=== PATIENT | female | born 1990 | race Caucasian/White ===

== ENCOUNTER 2017-05-01 12:52 | Emergency (ER) | payer MEDICAID ==
[~2017-05-01] VITALS: Ht 152.4 cm; Wt 62.0 kg
[~2017-05-01 12:52] MED LIST: DOCU100C8 PO; DOXY1TAB3 PO; IBUP-1222 PO; OXYC-302 PO; PREN1TAB52 PO; [UNRECOGNIZED DRUG - OTHER] PO
[2017-05-01] MEDS ORDERED: SODIUM CHLORIDE 0.9% 1,000ML IVBOLUS ONE (14:00)
[2017-05-01] MEDS ORDERED: SODIUM CHLORIDE FLUSH 10ML SYR IVF ONE (14:00)
[2017-05-01 14:14] LABS: BLOOD UREA NITROGEN 12 mg/dL (7-18)
[2017-05-01 14:33] LABS: ASPARTATE AMINO TRANSFERASE 20 U/L (15-37)
[2017-05-01 14:55] VITALS: BP 131/66
== END 2017-05-01 15:47 | disposition home or self-care (01) ==
LOC: ED 15:15
DX: O20.0 Threatened abortion (principal); Z3A.01 Less than 8 weeks gestation of pregnancy
CPT/HCPCS: 36415; 76801; 80053; 81001; 84702; 85025; 86901; 87086

== ENCOUNTER 2017-05-12 10:31 | Emergency (ER) | payer MEDICAID ==
[~2017-05-12] VITALS: Ht 157.5 cm; Wt 62.0 kg
[2017-05-12] MEDS ORDERED: ONDANSETRON 2MG/ML, 2ML IVPush ONE (13:00)
[2017-05-12] MEDS ORDERED: SODIUM CHLORIDE 0.9% 1,000ML IVBOLUS ONE (13:00)
[2017-05-12] MEDS ORDERED: ONDANSETRON 2MG/ML, 2ML ONE (13:08)
[2017-05-12 13:29] LABS: BLOOD UREA NITROGEN 12 mg/dL (7-18)
[2017-05-12 13:32] LABS: ASPARTATE AMINO TRANSFERASE 18 U/L (15-37)
[2017-05-12] MEDS ORDERED: CEFTRIAXONE PMX 1GM/50ML 50 ML IV ONE (14:00)
[2017-05-12] MEDS ORDERED: CEFTRIAXONE PMX 1GM/50ML 50 ML ONE (14:02)
[2017-05-12 14:59] VITALS: BP 121/66
== END 2017-05-12 15:01 | disposition home or self-care (01) ==
LOC: ED 13:24
DX: O23.41 Unspecified infection of urinary tract in pregnancy, first trimester (principal)
CPT/HCPCS: 36415; 80053; 81001; 85025; 87077; 87086; 87186; 93005; 96361; 96365; 96375; 99285; J0696; J2405; J7030

== ENCOUNTER 2017-05-24 23:04 | Emergency (ER) | payer MEDICAID ==
[~2017-05-24] VITALS: Ht 165.1 cm; Wt 59.3 kg
[2017-05-24] MEDS ORDERED: SODIUM CHLORIDE 0.9% 1,000ML IVBOLUS ONE (23:30)
[2017-05-24] MEDS ORDERED: ONDANSETRON 2MG/ML, 2ML IVPush ONE (23:30)
[2017-05-24] MEDS ORDERED: FAMOTIDINE 20 MG/2 ML IVP ONE (23:30)
[2017-05-24] MEDS ORDERED: FAMOTIDINE 20 MG/2 ML ONE (23:35)
[2017-05-24] MEDS ORDERED: ONDANSETRON 2MG/ML, 2ML ONE (23:35)
[2017-05-25 00:18] LABS: BLOOD UREA NITROGEN 11 mg/dL (7-18)
[2017-05-25 00:22] LABS: ASPARTATE AMINO TRANSFERASE 21 U/L (15-37)
[2017-05-25] MEDS ORDERED: METOCLOPRAMIDE 5 MG/ML, 2ML ONE (02:28)
[2017-05-25] MEDS ORDERED: METOCLOPRAMIDE 5 MG/ML, 2ML IVPush ONE (02:30)
[2017-05-25 02:31] VITALS: BP 105/63
== END 2017-05-25 02:50 | disposition home or self-care (01) ==
LOC: ED 23:59
DX: O26.892 Other specified pregnancy related conditions, second trimester (principal); O21.1 Hyperemesis gravidarum with metabolic disturbance; R11.0 Nausea; E86.0 Dehydration; Z3A.21 21 weeks gestation of pregnancy
CPT/HCPCS: 36415; 80053; 81001; 83690; 85025; 87086; 93005; 96374; 96375; 99285; J2405; J2765; J7030; S0028